=== PATIENT | male | born 1995 | race Caucasian/White ===

== ENCOUNTER 2021-05-13 14:02 | Outpatient (CLI) | payer BC ==
[2021-05-13 16:44] LABS: BASOPHILS # (AUTO) 0.1 10^3/uL (0.0-0.1); BASOPHILS % (AUTO) 1.1 %; EOSINOPHILS # (AUTO) 0.1 10^3/uL (0.0-0.7); EOSINOPHILS % (AUTO) 1.8 %; HCT - HEMATOCRIT 45.6 % (42.0-52.0); HGB - HEMOGLOBIN 15.6 g/dL (14.0-18.0); LYMPHOCYTES % (AUTO) 36.6 %; MEAN CORPUSCULAR HEMOGLOBIN 30.4 pg (27.0-31.0); MEAN CORPUSCULAR HGB CONC 34.2 g/dL (32.0-36.0); MEAN CORPUSCULAR VOLUME 88.7 fL (80.0-94.0); MEAN PLATELET VOLUME 10.3 fL (7.4-11.4); MONOCYTES # (AUTO) 0.6 10^3/uL (0.0-1.0); MONOCYTES % (AUTO) 11.1 %; NEUTROPHILS # (AUTO) 2.7 10^3/uL (1.5-6.6); PLT - PLATELET COUNT 288 10^3/uL (130-450); RED BLOOD COUNT 5.14 10^6/uL (4.70-6.10); WHITE BLOOD COUNT 5.6 x10^3/uL (4.8-10.8)
[2021-05-13 16:49] LABS: CALCIUM 9.2 mg/dL (8.5-10.3); POTASSIUM 3.7 mmol/L (3.5-5.0)
== END 2021-05-13 23:59 | disposition home or self-care (01) ==
LOC: LAB.N 14:02
PROVIDERS: ATTEND Physician Assistant Medical
DX: N20.9 Urinary calculus, unspecified (principal)
CPT/HCPCS: 36415; 80048; 85025; 87086

== ENCOUNTER 2021-06-13 15:30 | Outpatient (CLI) | payer BC ==
[2021-06-19 01:34] LABS: SPECIMEN SOURCE URINARY STONE; STONE WEIGHT 0.025 g
== END 2021-06-13 23:59 | disposition home or self-care (01) ==
LOC: LAB.S 15:30
PROVIDERS: ATTEND Physician Assistant
DX: N20.9 Urinary calculus, unspecified (principal)
CPT/HCPCS: 82365

== ENCOUNTER 2023-08-31 15:20 | Emergency (ER) | payer BC, OTHER ==
--- NOTE | 2023-08-31 15:58 | ED Physician Documentation ---
PD HPI UPPER EXT INJURY - Stated complaint Stated Complaint: RT FINGER LAC - Chief complaint Chief Complaint: Laceration - History obtained from History obtained from: Patient - History of Present Illness Location: Right, Finger (tip of ring finger skin flap laceration with shim plug cutter as he was cutting a cucumber.) Where injury occurred: Home Timing - onset: Today Worsened by: Palpating Associated symptoms: Other (he has persistent bleeding from the area despite direct pressure.). No: Weakness, Numbness Similar symptoms before: Has not had sx before PD PAST MEDICAL HISTORY - Past Medical History Cardiovascular: None Endocrine/Autoimmune: None - Allergies Allergies/Adverse Reactions: Allergies Allergy/AdvReac Type Severity Reaction Status Date / Time No Known Drug Allergies Allergy Verified 08/31/23 15:50 PD ED PE NORMAL - Vitals Vital signs reviewed: Yes - General General: Alert and oriented X 3, No acute distress, Well developed/nourished - Derm Derm: Normal color, Warm and dry - Extremities Extremities: Other (right ring finger tip with 1 cm rounded flap of skin with pale coloration and held connected by just wisp of dermal skin. No subdermal connection. Discussion with the patient is that skin is not viable and I snipped the small connected skin. Still with capillary dripping of blood. not involving nail) - Neuro Neuro: Alert and oriented X 3, No motor deficit, No sensory deficit Results - Vitals Vitals: Oxygen O2 Source Room air PD Medical Decision Making - ED course Complexity details: considered differential (local anesth with lido without epi to the wound are to decrease bleeding and allow treatment. Cautery used to stop the bleeding at the site. Pressure dressing applied with vaseline gauze, 4x4 and coban dressing. No bleeding. ), d/w patient Departure - Departure Disposition: 01 Home, Self Care Clinical Impression: Avulsion of skin of finger Condition: Stable Record reviewed to determine appropriate education?: Yes Instructions: ED Avulsion Dermal Comments: This should healing adequately with time. Leave the initial dressing on until tomorrow at least and then okay to remove it and start routine wound care with cleaning soap and water and applying ointment and bandage. Recheck if signs of infection. Tylenol ibuprofen if needed for pains. Activity as tolerated. This should heal up over the next 1 and half to 2 weeks. Forms: PCP List Discharge Date/Time: 08/31/23 16:34
[2023-08-31 16:07] VITALS: BP 140/83; O2SAT 94
== END 2023-08-31 16:34 | disposition home or self-care (01) ==
LOC: ED 15:20
DX: S61.204A Unspecified open wound of right ring finger without damage to nail, initial encounter (principal); W26.0XXA Contact with knife, initial encounter; Y93.G9 Activity, other involving cooking and grilling
CPT/HCPCS: 99282; 99283